=== PATIENT | male | born 1950 ===

== ENCOUNTER 2023-08-25 21:50 | Inpatient (IN) | payer MEDICARE, OTHER ==
[~2023-08-25] VITALS: Ht 172.7 cm; Wt 62.6 kg
[2023-08-25 21:50] VITALS: BP 140/81; TEMP 98; O2SAT 96
[2023-08-25] MEDS ORDERED: ATOV750O4 PO (23:16)
[2023-08-25] MEDS ORDERED: MAGN400O6 PO (23:16)
[2023-08-25] MEDS ORDERED: TAMS-3 PO (23:16)
[2023-08-25] MEDS ORDERED: GABA-532 PO (23:16)
[2023-08-25] MEDS ORDERED: CLON0.1T PO (23:16)
[2023-08-25] MEDS ORDERED: LORA0.5T48 PO (23:16)
[2023-08-25] MEDS ORDERED: ATOR20TA PO (23:16)
[2023-08-25] MEDS ORDERED: MELA1TAB53 PO (23:16)
[2023-08-25] MEDS ORDERED: OXYC5TAB3 PO (23:16)
[2023-08-25] MEDS ORDERED: QUET50TA PO (23:16)
[2023-08-25] MEDS ORDERED: LISPRO (23:16)
[2023-08-25] MEDS ORDERED: SENN-18 PO (23:16)
[2023-08-25] MEDS ORDERED: CALC1TAB30 PO (23:16)
[2023-08-25] MEDS ORDERED: POLY17PO4 PO (23:16)
[2023-08-25] MEDS ORDERED: CLOT10TR PO (23:16)
[2023-08-25] MEDS ORDERED: PRED20TA PO (23:16)
[2023-08-25] MEDS ORDERED: NA P133E RC (23:16)
[2023-08-25] MEDS ORDERED: PANT40TA2 PO (23:16)
[2023-08-25] MEDS ORDERED: LISPRO SQ (23:16)
[2023-08-25] MEDS ORDERED: INSU3INS6 SQ (23:16)
[2023-08-25] MEDS ORDERED: AMLO10TA59 PO (23:16)
[2023-08-25] MEDS ORDERED: ACET-2154 PO (23:16)
[2023-08-25] MEDS ORDERED: BISA10SU61 RC (23:16)
[2023-08-25] MEDS ORDERED: ASPI81TA31 PO (23:16)
[2023-08-25] MEDS ORDERED: METO25TA6 PO (23:16)
[2023-08-25] MEDS ORDERED: IPRA3AMP23 IH ×2 (23:16)
[2023-08-26] MEDS ORDERED: DEXTROSE 50% 50 ML DISP.SYRIN IV PRN (09:00)
[2023-08-26] MEDS: GABAPENTIN 300 MG CAPSULE PO SCH (09:09)
[2023-08-26] MEDS: BLOOD SUGAR DIAGNOSTIC 1 EACH STRIP VI SCH (09:09)
[2023-08-26] MEDS: QUETIAPINE FUMARATE 25 MG TABLET PO SCH (09:09)
[2023-08-26] MEDS: INSULIN REGULAR, HUMAN 300 UNIT/3 ML VIAL SQ PRN (09:12)
[2023-08-26] MEDS ORDERED: ACETAMINOPHEN 325 MG TABLET-SA PATIENTS-PAIN ONLY PO PRN (10:00)
[2023-08-26] MEDS ORDERED: BISACODYL 10 MG SUPP.RECT RC PRN (10:00)
[2023-08-26] MEDS ORDERED: CLONIDINE HCL 0.1 MG TABLET PO PRN (10:00)
[2023-08-26] MEDS ORDERED: LORAZEPAM 0.5 MG TABLET PO PRN (10:00)
[2023-08-26] MEDS ORDERED: CLOTRIMAZOLE 10 MG TROCHE MM SCH (10:00)
[2023-08-26] MEDS ORDERED: FLEET ENEMA 133 ML BOTTLE RC PRN (10:00)
[2023-08-26] MEDS: predniSONE 10 MG TABLET PO SCH (12:16)
[2023-08-26] MEDS: ASPIRIN 81 MG TAB.CHEW PO SCH (12:16)
[2023-08-26] MEDS: CALCIUM CARB/VITAMIN D 500MG-200UNITS TABLET PO SCH (12:16)
[2023-08-26] MEDS: METOPROLOL TARTRATE 25 MG TABLET PO SCH (12:17)
[2023-08-26] MEDS: SENNOSIDES 1 TABLET PO SCH (12:17)
[2023-08-26] MEDS: AMLODIPINE 10 MG TABLET PO SCH (12:17)
[2023-08-26] MEDS: TAMSULOSIN HCL 0.4 MG CAP.SR.24H PO SCH (12:20)
[2023-08-26] MEDS: ATOVAQUONE 750 MG/5 ML SUSPENSION UDC PO SCH (12:35)
[2023-08-26] MEDS ORDERED: GABAPENTIN 100 MG CAPSULE PO SCH (13:00)
[2023-08-26] MEDS: CLOTRIMAZOLE 10 MG TROCHE MM SCH (13:59)
[2023-08-26] MEDS ORDERED: INSU100V36 SQ (14:00)
[2023-08-26] MEDS: ENOXAPARIN SODIUM 30 MG/0.3 ML DISP.SYRIN SUBCUT SCH (14:58)
[2023-08-26] MEDS: IPRATROPIUM BROMIDE 0.5 MG/2.5 ML NEBU NEB SCH (15:04)
[2023-08-26] MEDS: ALBUTEROL SULFATE 2.5 MG/ 0.5 ML NEBU NEB SCH (15:04)
[2023-08-26 15:07] LABS: BASOPHILS # (AUTO) 0.3 K/UL (0.0-0.2); BASOPHILS % (AUTO) 2.2 % (0.0-2.0); DIFFERENTIAL COMMENT 0; EOSINOPHILS # (AUTO) 0.1 K/uL (0.0-0.7); EOSINOPHILS % (AUTO) 1.1 % (0.0-7.0); HEMATOCRIT 27.1 % (36.7-47.1); HEMOGLOBIN 8.6 g/dL (12.5-16.3); LYMPHOCYTES % (AUTO) 7.6 % (20.5-51.5); MEAN CORPUSCULAR HGB CONC 32 g/dL (32.5-36.3); MEAN CORPUSCULAR VOLUME 91.5 fL (73.0-96.2); MONOCYTES # (AUTO) 0.6 K/uL (0.1-1.30); MONOCYTES % (AUTO) 4.9 % (0.0-11.0); NEUTROPHILS # (AUTO) 10.7 K/uL (1.8-8.9); NEUTROPHILS % (AUTO) 84.2 % (38.5-71.5); PLATELET COUNT (AUTO) 233 K/uL (152-348); RED BLOOD CELL COUNT(AUTO) 2.96 MIL/uL (4.06-5.63); WHITE BLOOD COUNT (AUTO) 12.7 K/uL (3.6-10.2)
[2023-08-26 15:14] LABS: CALCIUM 8.5 mg/dL (8.5-10.1); CREATININE 1.2 mg/dL (0.6-1.3); POTASSIUM 5.3 mmol/L (3.5-5.1)
[2023-08-26 15:15] VITALS: O2SAT 95
[2023-08-26 15:25] VITALS: O2SAT 99
[2023-08-26 16:00] VITALS: BP 129/49; TEMP 97.8; O2SAT 96
[2023-08-26] MEDS: INSULIN GLARGINE,HUM 300 UNITS/3 ML CARTRIDGE SQ SCH (18:21)
[2023-08-26] MEDS: INSULIN REGULAR, HUMAN 300 UNIT/3 ML VIAL SQ SCH (18:23)
[2023-08-26 19:35] LABS: THYROID STIMULATING HORMONE 1.386 mIU/mL (0.358-3.740)
[2023-08-26 19:55] VITALS: O2SAT 95
[2023-08-26 20:07] VITALS: O2SAT 98
[2023-08-26 20:10] VITALS: O2SAT 99
[2023-08-26] MEDS: INSULIN REGULAR, HUMAN 300 UNITS/3 ML VIAL SQ PRN (20:36)
[2023-08-26] MEDS: ATORVASTATIN 20 MG TABLET PO SCH (20:43)
[2023-08-26] MEDS: MIRALAX 17 GM POWD.PACK PO SCH (20:43)
[2023-08-26] MEDS ORDERED: INSULIN GLARGINE,HUM 300 UNITS/3 ML CARTRIDGE SQ SCH (21:00)
[2023-08-26] MEDS: MELATONIN 3 MG TABLET PO SCH (22:08)
[2023-08-27] VITALS (10 sets, daily range): BP systolic 120–147; BP diastolic 54–68; TEMP 97.5–98.5; O2SAT 94–99
[2023-08-27] MEDS: OXYCODONE HCL 5 MG TABLET PO PRN (05:58)
[2023-08-27 07:30] LABS: BASOPHILS % (AUTO) 0.3 % (0.0-2.0); EOSINOPHILS % (AUTO) 0.4 % (0.0-7.0); HEMATOCRIT 27.4 % (36.7-47.1); HEMOGLOBIN 8.8 g/dL (12.5-16.3); LYMPHOCYTES # (AUTO) 2.2 K/uL (0.8-4.8); LYMPHOCYTES % (AUTO) 17.4 % (20.5-51.5); MEAN CORPUSCULAR HEMOGLOBIN 29.2 uug (23.8-33.4); MEAN CORPUSCULAR HGB CONC 32 g/dL (32.5-36.3); MEAN CORPUSCULAR VOLUME 90.8 fL (73.0-96.2); MONOCYTES # (AUTO) 0.9 K/uL (0.1-1.30); MONOCYTES % (AUTO) 7.3 % (0.0-11.0); NEUTROPHILS # (AUTO) 9.5 K/uL (1.8-8.9); NEUTROPHILS % (AUTO) 74.6 % (38.5-71.5); PLATELET COUNT (AUTO) 215 K/uL (152-348); RED BLOOD CELL COUNT(AUTO) 3.02 MIL/uL (4.06-5.63); RED CELL DISTRIBUTION WIDTH 16.3 % (12.1-16.2); WHITE BLOOD COUNT (AUTO) 12.7 K/uL (3.6-10.2)
[2023-08-27] MEDS ORDERED: INSULIN REGULAR, HUMAN 300 UNIT/3 ML VIAL SQ SCH (07:30)
[2023-08-27 07:34] LABS: DIFFERENTIAL COMMENT 1
[2023-08-27 07:54] LABS: ALANINE AMINOTRANSFERASE 61 U/L (16-63); ALBUMIN 2.9 g/dL (3.4-5.0); ALKALINE PHOSPHATASE 81 U/L (50-136); ASPARTATE AMINOTRANSFERASE < 5 U/L (15-37); BILIRUBIN,TOTAL 0.3 mg/dL (0.2-1.0); CALCIUM 9.2 mg/dL (8.5-10.1); CARBON DIOXIDE 25 mmol/L (21-32); CHLORIDE 105 mmol/L (98-107); CREATININE 0.8 mg/dL (0.6-1.3); GLUCOSE 260 mg/dL (74-106); POTASSIUM 4.8 mmol/L (3.5-5.1); SODIUM SERUM 139 mmol/L (136-145); UREA NITROGEN, BLOOD 25 mg/dL (7-18)
[2023-08-27] MEDS ORDERED: ATOVAQUONE PO SCH (09:00)
[2023-08-27] MEDS: PANTOPRAZOLE SODIUM 40 MG TABLET.DR PO SCH (11:54)
[2023-08-27] MEDS: GABAPENTIN 300 MG CAPSULE PO ONE (21:05)
[2023-08-27] MEDS: QUETIAPINE FUMARATE 25 MG TABLET PO PRN (22:34)
[2023-08-28] VITALS (10 sets, daily range): BP systolic 123–144; BP diastolic 56–66; TEMP 97.5–98.3; O2SAT 94–98
[2023-08-28] MEDS: ALBUTEROL SULFATE 2.5 MG/3 ML NEBU NEB PRN (15:13)
[2023-08-28] MEDS: IPRATROPIUM BROMIDE 0.5 MG/2.5 ML NEBU NEB PRN (15:13)
[2023-08-28] MEDS: GLUCERNA SHAKE 237 ML CAN PO SCH (17:35)
[2023-08-29] VITALS (7 sets, daily range): BP systolic 136–152; BP diastolic 44–58; TEMP 97.8–98.9; O2SAT 94–98
[2023-08-29] MEDS: GABAPENTIN 300 MG CAPSULE PO SCH (00:29)
[2023-08-29] MEDS: QUETIAPINE FUMARATE 25 MG TABLET PO SCH (09:11)
[2023-08-29] MEDS: NICOTINE 7 MG/24HR PATCH TD SCH (13:52)
[2023-08-29 18:47] LABS: CREATININE 1.2 mg/dL (0.6-1.3); POTASSIUM 5.2 mmol/L (3.5-5.1)
[2023-08-29] MEDS: INSULIN GLARGINE,HUM 300 UNITS/3 ML CARTRIDGE SQ ONE (19:00)
[2023-08-29] MEDS: INSULIN GLARGINE,HUM 300 UNITS/3 ML CARTRIDGE SQ SCH (22:13)
[2023-08-30] VITALS (7 sets, daily range): BP systolic 128–142; BP diastolic 64–66; TEMP 97.7–98.3; O2SAT 91–98
[2023-08-30 07:24] LABS: BASOPHILS % (AUTO) 0.4 % (0.0-2.0); EOSINOPHILS # (AUTO) 0.2 K/uL (0.0-0.7); EOSINOPHILS % (AUTO) 1.2 % (0.0-7.0); HEMATOCRIT 26.7 % (36.7-47.1); HEMOGLOBIN 8.4 g/dL (12.5-16.3); LYMPHOCYTES # (AUTO) 3.6 K/uL (0.8-4.8); LYMPHOCYTES % (AUTO) 29.6 % (20.5-51.5); MEAN CORPUSCULAR HEMOGLOBIN 28.4 uug (23.8-33.4); MEAN CORPUSCULAR HGB CONC 32 g/dL (32.5-36.3); MEAN CORPUSCULAR VOLUME 90.1 fL (73.0-96.2); MONOCYTES # (AUTO) 0.9 K/uL (0.1-1.30); MONOCYTES % (AUTO) 7.2 % (0.0-11.0); NEUTROPHILS # (AUTO) 7.4 K/uL (1.8-8.9); NEUTROPHILS % (AUTO) 61.6 % (38.5-71.5); PLATELET COUNT (AUTO) 193 K/uL (152-348); RED BLOOD CELL COUNT(AUTO) 2.96 MIL/uL (4.06-5.63); RED CELL DISTRIBUTION WIDTH 16.8 % (12.1-16.2); WHITE BLOOD COUNT (AUTO) 12.1 K/uL (3.6-10.2)
[2023-08-30] MEDS ORDERED: glipiZIDE XL 5 MG TABCR PO ONE (07:30)
[2023-08-30 07:32] LABS: CREATININE 0.9 mg/dL (0.6-1.3); PHOSPHOROUS 3.5 mg/dL (2.5-4.9); POTASSIUM 4.5 mmol/L (3.5-5.1)
[2023-08-30 07:48] LABS: IRON, SERUM 34 ug/dL (50-175)
[2023-08-30 07:57] LABS: DIFFERENTIAL COMMENT 1
[2023-08-30] MEDS: FOLIC ACID/VITAMIN B COMP W-C TABLET PO SCH (08:54)
[2023-08-30] MEDS ORDERED: predniSONE 10 MG TABLET PO SCH ×2 (09:00)
[2023-08-30] MEDS ORDERED: ALBUTEROL SULFATE 2.5 MG/3 ML NEBU NEB PRN (09:00)
[2023-08-30] MEDS ORDERED: glipiZIDE XL 5 MG TABCR PO SCH ×2 (09:00→16:30)
[2023-08-30] MEDS: predniSONE 20 MG TABLET PO SCH (09:13)
[2023-08-30] MEDS: glipiZIDE 5 MG TABLET PO SCH (09:40)
[2023-08-30] MEDS: SOD FERRIC GLUC COMPLX/SUCROSE 125 MG in IV NORMAL SALINE 100 ML IV SCH (14:00)
[2023-08-30] MEDS: METFORMIN XR 500 MG TAB.SR.24H PO SCH (17:45)
[2023-08-31 06:47] VITALS: BP 142/73; TEMP 97.4; O2SAT 97
[2023-08-31 07:31] LABS: BASOPHILS # (AUTO) 0.1 K/UL (0.0-0.2); BASOPHILS % (AUTO) 0.6 % (0.0-2.0); EOSINOPHILS # (AUTO) 0.2 K/uL (0.0-0.7); EOSINOPHILS % (AUTO) 1.5 % (0.0-7.0); HEMATOCRIT 27.4 % (36.7-47.1); HEMOGLOBIN 8.9 g/dL (12.5-16.3); LYMPHOCYTES # (AUTO) 2.8 K/uL (0.8-4.8); LYMPHOCYTES % (AUTO) 26.7 % (20.5-51.5); MEAN CORPUSCULAR HEMOGLOBIN 28.8 uug (23.8-33.4); MEAN CORPUSCULAR HGB CONC 33 g/dL (32.5-36.3); MEAN CORPUSCULAR VOLUME 88.6 fL (73.0-96.2); MONOCYTES # (AUTO) 0.7 K/uL (0.1-1.30); MONOCYTES % (AUTO) 6.8 % (0.0-11.0); NEUTROPHILS # (AUTO) 6.9 K/uL (1.8-8.9); NEUTROPHILS % (AUTO) 64.4 % (38.5-71.5); PLATELET COUNT (AUTO) 167 K/uL (152-348); RED BLOOD CELL COUNT(AUTO) 3.09 MIL/uL (4.06-5.63); RED CELL DISTRIBUTION WIDTH 16.5 % (12.1-16.2); WHITE BLOOD COUNT (AUTO) 10.7 K/uL (3.6-10.2)
[2023-08-31 07:37] LABS: CALCIUM 9.4 mg/dL (8.5-10.1); CARBON DIOXIDE 28 mmol/L (21-32); CHLORIDE 106 mmol/L (98-107); CREATININE 0.6 mg/dL (0.6-1.3); GLUCOSE 92 mg/dL (74-106); MAGNESIUM 1.9 mg/dL (1.8-2.4); PHOSPHOROUS 4.3 mg/dL (2.5-4.9); POTASSIUM 4.2 mmol/L (3.5-5.1); SODIUM SERUM 141 mmol/L (136-145); UREA NITROGEN, BLOOD 26 mg/dL (7-18)
[2023-08-31 07:38] LABS: DIFFERENTIAL COMMENT 1
[2023-08-31 08:29] LABS: ANISOCYTOSIS 1+; BAND % (MANUAL) 1 % (0-10); EOSINOPHILS % (MANUAL) 1 % (0-8); LYMPHOCYTES % (MANUAL) 25 % (20-40); MONOCYTES % (MANUAL) 6 % (2-10); NEUTROPHILS % (MANUAL) 67 % (42-75); PLATELET ESTIMATE ADEQUATE
[2023-08-31 15:27] VITALS: BP 139/66; TEMP 98.4; O2SAT 92
[2023-08-31] MEDS ORDERED: ENOXAPARIN SODIUM 30 MG/0.3 ML DISP.SYRIN SUBCUT SCH (20:00)
[2023-08-31 22:00] VITALS: BP 138/58; TEMP 98.6; O2SAT 90
[2023-08-31] MEDS: ACETAMINOPHEN 325 MG TABLET PO PRN (22:36)
[2023-09-01 07:00] VITALS: BP 134/60; TEMP 97.8; O2SAT 90
[2023-09-01 15:48] VITALS: BP 128/53; TEMP 97.7; O2SAT 92
[2023-09-01] MEDS ORDERED: OXYCODONE HCL 5 MG TABLET PO PRN (16:45)
[2023-09-01] MEDS: GABAPENTIN 400 MG CAPSULE PO SCH ×2 (17:50→20:51)
[2023-09-01 20:00] VITALS: BP 114/63; TEMP 97.7; O2SAT 92
[2023-09-02 04:00] VITALS: BP_SYST 136; BP_SYST 89; BP_DIAS 54; BP_DIAS 62; TEMP 98.2; O2SAT 100; O2SAT 94
[2023-09-02] MEDS: OXYCODONE HCL 5 MG TABLET PO PRN (08:56)
[2023-09-02 15:27] VITALS: BP 130/55; TEMP 98; O2SAT 94
[2023-09-02] MEDS: INSULIN GLARGINE,HUM 300 UNITS/3 ML CARTRIDGE SQ SCH (20:40)
[2023-09-02 21:21] VITALS: BP 143/62; TEMP 97.6; O2SAT 90
[2023-09-02 23:15] VITALS: O2SAT 91
[2023-09-02 23:29] VITALS: O2SAT 98
[2023-09-02] MEDS: ALBUTEROL SULFATE 1.25 MG/3 ML NEBU NEB PRN (23:52)
[2023-09-03] MEDS: FUROSEMIDE 40 MG TABLET PO ONE (12:35)
[2023-09-03 15:51] VITALS: BP 125/65; TEMP 97.7; O2SAT 95
[2023-09-03 20:00] VITALS: BP 131/72; TEMP 98.2; O2SAT 96
[2023-09-03] MEDS: ENOXAPARIN SODIUM 40 MG/0.4 ML DISP.SYRIN SQ SCH (20:45)
[2023-09-04] VITALS (7 sets, daily range): BP systolic 106–157; BP diastolic 62–73; TEMP 97.8–98.5; O2SAT 93–99
[2023-09-04] MEDS: predniSONE 10 MG TABLET PO SCH (09:31)
[2023-09-04] MEDS: NEOMY/BACITRAC/POLYMI OINT 28.35 GM TUBE TOP SCH (12:31)
[2023-09-04] MEDS: CLINDAMYCIN HCL 300 MG CAPSULE PO SCH (14:23)
[2023-09-05 06:35] VITALS: BP 137/57; TEMP 97.8; O2SAT 100
[2023-09-05 07:04] LABS: BASOPHILS % (AUTO) 0.3 % (0.0-2.0); EOSINOPHILS # (AUTO) 0.2 K/uL (0.0-0.7); EOSINOPHILS % (AUTO) 1.6 % (0.0-7.0); HEMATOCRIT 26.7 % (36.7-47.1); HEMOGLOBIN 8.6 g/dL (12.5-16.3); LYMPHOCYTES # (AUTO) 3.3 K/uL (0.8-4.8); LYMPHOCYTES % (AUTO) 27.9 % (20.5-51.5); MEAN CORPUSCULAR HEMOGLOBIN 29.4 uug (23.8-33.4); MEAN CORPUSCULAR HGB CONC 32 g/dL (32.5-36.3); MONOCYTES # (AUTO) 1.2 K/uL (0.1-1.30); MONOCYTES % (AUTO) 10.4 % (0.0-11.0); NEUTROPHILS % (AUTO) 59.8 % (38.5-71.5); PLATELET COUNT (AUTO) 256 K/uL (152-348); RED BLOOD CELL COUNT(AUTO) 2.94 MIL/uL (4.06-5.63); RED CELL DISTRIBUTION WIDTH 18.6 % (12.1-16.2); WHITE BLOOD COUNT (AUTO) 11.7 K/uL (3.6-10.2)
[2023-09-05 07:13] LABS: DIFFERENTIAL COMMENT 1
[2023-09-05 07:27] LABS: ALANINE AMINOTRANSFERASE 26 U/L (16-63); ALKALINE PHOSPHATASE 67 U/L (50-136); ASPARTATE AMINOTRANSFERASE < 5 U/L (15-37); BILIRUBIN,TOTAL 0.3 mg/dL (0.2-1.0); CALCIUM 9.2 mg/dL (8.5-10.1); CARBON DIOXIDE 26 mmol/L (21-32); CHLORIDE 104 mmol/L (98-107); CREATININE 0.9 mg/dL (0.6-1.3); GLUCOSE 194 mg/dL (74-106); MAGNESIUM 1.9 mg/dL (1.8-2.4); NT-PRO BNP 619 pg/mL (0-125); PHOSPHOROUS 4.3 mg/dL (2.5-4.9); POTASSIUM 4.2 mmol/L (3.5-5.1); SODIUM SERUM 141 mmol/L (136-145); TOTAL PROTEIN, SERUM 6.2 g/dL (6.4-8.2); UREA NITROGEN, BLOOD 28 mg/dL (7-18)
[2023-09-05 12:45] LABS: EOSINOPHILS % (MANUAL) 2 % (0-8); LYMPHOCYTES % (MANUAL) 29 % (20-40); MONOCYTES % (MANUAL) 9 % (2-10); NEUTROPHILS % (MANUAL) 60 % (42-75)
[2023-09-05 12:52] LABS: PLATELET ESTIMATE ADEQUATE
[2023-09-05 12:53] LABS: ANISOCYTOSIS 1+
[2023-09-05 12:55] LABS: HYPOCHROMASIA 1+
[2023-09-05 17:00] VITALS: BP 127/61; TEMP 97.6; O2SAT 100
[2023-09-05] MEDS: BUMETANIDE 1 MG/4 ML VIAL IV ONE (17:16)
[2023-09-05] MEDS: POTASSIUM CHLORIDE 10 MEQ TAB.PRT.SR PO ONE (17:16)
[2023-09-05] MEDS: METOLAZONE 2.5 MG TABLET PO ONE (17:16)
[2023-09-05 20:16] VITALS: BP 119/53; TEMP 97.7; O2SAT 90
[2023-09-05 21:14] VITALS: O2SAT 98
[2023-09-06 00:38] VITALS: O2SAT 98
[2023-09-06 05:00] VITALS: BP 129/45; TEMP 97.4; O2SAT 93
[2023-09-06] MEDS: MAGNESIUM HYDROXIDE 30 ML LIQUID UDC PO PRN (08:32)
[2023-09-06 15:47] VITALS: BP 143/61; TEMP 98.6; O2SAT 96
[2023-09-06 19:57] VITALS: BP 145/59; TEMP 97.4; O2SAT 93
[2023-09-06] MEDS: APIXABAN 2.5 MG TABLET PO SCH (21:20)
[2023-09-07 05:44] VITALS: BP 136/56; TEMP 98.2; O2SAT 94
[2023-09-07 16:00] VITALS: BP 122/52; TEMP 97.5; O2SAT 95
[2023-09-09] MEDS ORDERED: predniSONE 5 MG TABLET PO SCH (09:00)
== END 2023-09-07 17:00 | DRG 189 ==
PROVIDERS: ADMIT Physical Medicine & Rehabilitation; ATTEND Physical Medicine & Rehabilitation
DX: J96.01 Acute respiratory failure with hypoxia (principal); G92.8 Other toxic encephalopathy; G72.81 Critical illness myopathy; N17.9 Acute kidney failure, unspecified; I13.0 Hypertensive heart and chronic kidney disease with heart failure and stage 1 through stage 4 chronic kidney disease, or unspecified chronic kidney disease; J84.116 Cryptogenic organizing pneumonia; J44.0 Chronic obstructive pulmonary disease with (acute) lower respiratory infection; E11.22 Type 2 diabetes mellitus with diabetic chronic kidney disease; E11.51 Type 2 diabetes mellitus with diabetic peripheral angiopathy without gangrene; E11.65 Type 2 diabetes mellitus with hyperglycemia; I50.9 Heart failure, unspecified; N18.9 Chronic kidney disease, unspecified; E87.5 Hyperkalemia; T38.0X5D Adverse effect of glucocorticoids and synthetic analogues, subsequent encounter; T36.8X5D Adverse effect of other systemic antibiotics, subsequent encounter; Z86.718 Personal history of other venous thrombosis and embolism; D64.9 Anemia, unspecified; E11.42 Type 2 diabetes mellitus with diabetic polyneuropathy; E11.621 Type 2 diabetes mellitus with foot ulcer; L97.519 Non-pressure chronic ulcer of other part of right foot with unspecified severity; F41.9 Anxiety disorder, unspecified; E11.649 Type 2 diabetes mellitus with hypoglycemia without coma; E78.00 Pure hypercholesterolemia, unspecified; F17.210 Nicotine dependence, cigarettes, uncomplicated; I25.10 Atherosclerotic heart disease of native coronary artery without angina pectoris; I27.20 Pulmonary hypertension, unspecified; M21.612 Bunion of left foot; M21.611 Bunion of right foot; Z79.01 Long term (current) use of anticoagulants; Z98.61 Coronary angioplasty status
CPT/HCPCS: 36415; 70030-TC; 71045; 82652; 83550; 83735; 84100; 84207; 84443; 85025; 87040; 94640; 97535-GO-CO; A6209; A9150; J1650; J1815; J2916; J3490; J3590; J7512; J8499